=== PATIENT | male | born 1945 | race Caucasian/White ===

== ENCOUNTER → 2022-07-31 | Outpatient (RCR) | payer MEDICARE ==
[~2022-07-31] MED LIST: BENAZEPRIL HCL20 MG PO; CYMBALTA30 MG PO; FENOGLIDE40 MG PO; LIPITOR20 MG PO; METOPROLOL SUCC50 MG PO
== END ==
LOC: PT 07-28 09:48
PROVIDERS: ATTEND Specialist
DX: M75.42 Impingement syndrome of left shoulder (principal)

== ENCOUNTER → 2022-08-30 | Outpatient (RCR) | payer MEDICARE | LOC: PT 08-02 07:45 | PROVIDERS: ATTEND Specialist | DX: M75.42 Impingement syndrome of left shoulder (principal) ==

== ENCOUNTER → 2023-02-28 | Outpatient (RCR) | payer MEDICARE | LOC: PT 02-19 07:50 | PROVIDERS: ATTEND Orthopaedic Surgery Orthopaedic Surgery of the Spine | DX: M51.26 Other intervertebral disc displacement, lumbar region (principal); M62.81 Muscle weakness (generalized); R26.2 Difficulty in walking, not elsewhere classified; M53.86 Other specified dorsopathies, lumbar region ==

== ENCOUNTER 2023-03-16 08:44 | Outpatient (RCR) | payer MEDICARE | END 2023-03-30 | LOC: PT 08:44 | PROVIDERS: ATTEND Orthopaedic Surgery Orthopaedic Surgery of the Spine | DX: M51.26 Other intervertebral disc displacement, lumbar region (principal); M62.81 Muscle weakness (generalized); M53.86 Other specified dorsopathies, lumbar region; R26.2 Difficulty in walking, not elsewhere classified ==

== ENCOUNTER 2024-10-13 10:31 | Outpatient (RCR) | payer MEDICARE | END 2024-10-31 | LOC: OT 10:31 | PROVIDERS: ATTEND Orthopaedic Surgery | DX: M25.642 Stiffness of left hand, not elsewhere classified (principal) ==